=== PATIENT | male | born 1990 ===

== ENCOUNTER 2022-02-13 16:22 | Outpatient (REF) | payer OTHER, SELFPAY ==
--- NOTE | ~2022-02-13 | XR_ITS ---
EXAMINATION: XR TOES, RIGHT CLINICAL INFORMATION: First digit pain. COMPARISON: None TECHNIQUE: 3 views of the right toes were obtained. FINDINGS: Mild hallux valgus deformity. No acute fracture or dislocation. The joint spaces are unremarkable. The soft tissues are unremarkable. No radiopaque foreign body. XR/XR toe RT min 2V IMPRESSION: No acute abnormality or significant degenerative change. Mild hallux valgus.
== END 2022-02-13 16:23 | disposition home or self-care (01) ==
LOC: HO.HMGCX 16:22
PROVIDERS: PCP Internal Medicine; Visit Provider Emergency Medicine
DX: M79.674 Pain in right toe(s) (principal)
CPT/HCPCS: 73660

== ENCOUNTER 2022-09-04 09:52 | Outpatient (REF) | payer OTHER, SELFPAY ==
[2022-09-04 10:04] LABS: MANUAL DIFF FLAG NO
[2022-09-04 10:34] LABS: Basophils Percent Auto 0.4 % (0-2); Eosinophils Absolute Auto 0.1 X10*3/uL (0.0-0.4); Eosinophils Percent Auto 1.7 % (0-4); Hematocrit 46.1 % (42.0-52.0); Hemoglobin 15.4 g/dl (14.0-18.0); Imm Gran Abs Auto 0.01 X10*3/uL (0.00-0.03); Imm Gran Pct Auto 0.1 % (0.0-0.4); Lymphocytes Absolute Auto 3.4 X10*3/uL (1.2-4.9); Lymphocytes Percent Auto 43.4 % (20-40); Mean Corpuscular HGB Conc 33.4 g/dl (31.0-36.0); Mean Corpuscular Hemoglobin 29.7 pg (27.0-33.0); Mean Platelet Volume 10.3 fL (9.4-12.4); Monocytes Absolute Auto 0.5 X10*3/uL (0.1-1.2); Monocytes Percent Auto 6.9 % (2-11); Neutrophils Absolute Auto 3.7 x10*3/uL (2.0-8.3); Neutrophils Percent Auto 47.5 % (45-73); Platelet Count 275 X10*3/uL (160-400); Red Blood Count 5.18 X10*6/uL (4.60-5.80); Red Cell Distribution Width 12.1 % (11.0-16.0); White Blood Count 7.8 X10*3/uL (4.8-10.8)
[2022-09-04 11:08] LABS: Alanine Aminotransferase 26 U/L (0-40); Albumin Level 4.7 g/dL (3.5-5.0); Alkaline Phosphatase 53 U/L (39-117); Anion Gap 12 (12-20); Aspartate Amino Transferase 24 U/L (5-37); Bilirubin Total 0.8 mg/dL (0.0-1.0); Blood Urea Nitrogen 14 mg/dL (9-16); Calcium 9.9 mg/dL (8.4-10.2); Carbon Dioxide 28 mmol/L (22-29); Chloride 107 mmol/L (96-108); Cholesterol 176 mg/dL; Estimated Glomerular Filt Rate > 60; Glucose Random 72 mg/dL (60-115); Potassium 4.8 mmol/L (3.3-5.1); Sodium 142 mmol/L (135-145)
[2022-09-04 11:14] LABS: Appearance Urine Clear; Color Urine Yellow; Glucose Urine UA Negative (Negative); Leukocyte Esterase Urine Negative (Negative); Nitrite Urine Negative (Negative); Specific Gravity - Urine 1.015 (1.005-1.025); Urine Blood Negative (Negative); Urine Ketones Negative (Negative); Urine Protein Negative (Neg-Trace)
[2022-09-04 11:25] LABS: TSH reflex Free T4 0.97 uIU/mL (0.32-4.0); Vitamin D 25-OH Total 35.7 ng/mL (>30)
== END 2022-09-04 09:53 | disposition home or self-care (01) ==
LOC: HO.LAB 09:52
PROVIDERS: PCP Internal Medicine; Visit Provider Internal Medicine
DX: Z00.00 Encounter for general adult medical examination without abnormal findings (principal); E78.00 Pure hypercholesterolemia, unspecified; R30.0 Dysuria; E55.9 Vitamin D deficiency, unspecified
CPT/HCPCS: 36415; 80053; 81003; 82306; 82465; 84443; 85025

== ENCOUNTER 2023-01-06 09:18 | Outpatient (AMB) | payer OTHER, SELFPAY ==
[2023-01-06 09:26] VITALS: BP 110/78; PULSE 48; O2SAT 97; BMI 31.4
--- NOTE | 2023-01-06 09:26 | MHC.PC.OV ---
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 Required: No Accompanied by: Self / Same As Patient Allergies No Known Drug Allergies Allergy (Mild, Verified 01/06/23 09:59) Unknown Medication List - Last Reconciled 01/06/23 by Julio Beebe MD valacyclovir 1,000 mg PO BID Tobacco use date assessed: 01/06/23 Dental Screening Dental Screen Date: 01/06/23 Did you have a dental visit in the last 12 months?: Yes Did you have a dental problem in the last 6 months where you did not have access to dental care?: No Was dental information given to patient?: Patient has dentist HPI GERD/gastritis HPI Details Patient comes in today for his follow up visit States that he still has on and off headaches - last episode was about a month ago and describes it as a brief sharp pain on the right side of his head that lasted for about 5 seconds This was followed later on by a generalized throbbing type of headache that lasted for about 5 to 10 minutes States that he often has not taken anything for his headaches lately as by the time he decides to take something, the headaches are gone Relates (+) fatigue often; denies any dizziness Denies any chest pains, no SOB No nausea/vomiting but still has recurrent epigastric pains and states that the Omeprazole Rx he was started on previously did not help much No change in bowel habits noted Was seen by podiatry for his toe issues a couple of months ago and states that they wanted him to try some orthotics first REPLACED BY [facility] Medical History Herpes encephalitis Obesity (BMI 30-39.9) Surgical History Hx of reconstruction of anterior cruciate ligament tear Family History Father No problems noted. Mother No problems noted. Other Substance abuse Social History Housing: House Alcohol intake: current Alcohol intake frequency: holidays/special occasions only Patient Tobacco Use Status: Never used Tobacco e-Cigarette/Vaping Use: Never Used Second Hand Smoke Exposure: Yes service: No Current occupational status: student Cognitive needs: No Hearing needs: No Vision needs: Yes Questionnaire PHQ-9 Over the last 2 weeks, how often have you been bothered by any of the following problems? 1. Little interest or pleasure in doing things: not at all 2. Feeling down, depressed, or hopeless: not at all 3. Trouble falling or staying asleep, or sleeping too much: not at all 4. Feeling tired or having little energy: not at all 5. Poor appetite or overeating: not at all 6. Feeling bad about yourself - or that you are a failure or have let yourself or your family down: not at all 7. Trouble concentrating on things, such as reading the newspaper or watching television: not at all 8. Moving or speaking so slowly that other people could have noticed. Or the opposite - being so fidgety or restless that you have been moving around a lot more than usual: not at all 9. Thoughts that you would be better off or of hurting yourself in some way: not at all Total score: 0 Depression Screening Interpretation: Negative 39018 - PHQ-9 Billing: Yes Source: Developed by Drs. Naresh Durant, Maki Rivera, Edwin Banegas and colleagues, with an educational bart from [employer]. Thrive Questionnaire Date Thrive assessed: 01/06/23 I am a: Patient What is your living situation today?: I have a steady place to live Within the past 12 months, did the food you bought not last and you didn't have the money to get more?: Never true Within the past 12 months, did you worry whether your food would run out before you got money to buy more?: Never true Do you have trouble paying for medicines?: No Do you have trouble getting transportation to medical appointments?: No Do you have trouble paying your heating and electricity bill?: No Do you have trouble taking care of your child, family member or friend?: No Do you have trouble with day-to-day activities such as bathing, preparing meals, shopping, managing finances, etc.?: No Are you currently unemployed and looking for a job?: No Are you interested in more education?: No Please select the resources that you would like help with: None Currently or been in a relationship where the following occur: no concerns reported AUDIT C Alcohol Use Questionnaire (AUDIT-C) 1. How often do you have a drink containing alcohol?: Monthly or less 2. How many drinks containing alcohol do you have on a typical day when you are drinking?: 1 or 2 3. How often do you have six or more drinks on one occasion?: Never Total Score: 1 Score Reviewed/Action Taken: Yes DIAZ-7 AMB Questionnaire DIAZ-7 Date DIAZ - 7 assessed: 01/06/23 Feeling nervous, anxious, or on edge: 1 = Several days Not being able to stop or control worryin = Several days Worrying too much about different things: 1 = Several days Trouble relaxin = Several days Being so restless that it is hard to sit still: 1 = Several days Becoming easily annoyed or irritable: 1 = Several days Feeling afraid as if something awful might happen: 1 = Several days Total DIAZ-7 score (0-4 normal; 5-9 mild; 10-14 moderate; 15-21 severe): 7 Source: Developed by Drs. Naresh Durant, Maki Rivera, Edwin Banegas and colleagues, with an educational bart from [employer]. Review of Systems Const Denies chills, Denies fatigue, Denies fever(s) and Reports headache(s) (occasional sharp headaches - see HPI) Eyes Reports blurry vision (in both eyes - has myopia and astigmatism), Reports eye pain (occasional sharp pains in the eyes ) and Reports seeing flashes (when eye pain occurs) ENT Denies dysphagia, Denies dizziness, Denies otalgia, Reports headache(s) (occasional sharp headaches - see HPI), Denies neck pain, Denies odynophagia and Denies sore throat Card Denies chest pain, Denies rapid heart rate, Denies irregular heart rhythm, Denies palpitations and Denies dyspnea Resp Denies chest congestion, Denies cough, Denies dyspnea and Denies wheezing GI Reports abdominal pain (on and off, mostly epigastric - better with eating), Denies constipation, Denies dysphagia, Denies heartburn, Denies diarrhea, Denies nausea, Denies odynophagia and Denies vomiting Denies difficulty urinating, Denies dysuria and Denies urinary frequency Musc Reports arthralgias (frequent, mostly on and under base of right big toe), Denies joint swelling and Denies neck pain Skin/Breast Denies rash Neuro Denies dizziness, Reports headache(s) (occasional sharp headaches - see HPI) and Denies paresthesias Endo Denies fatigue and Denies palpitations Aller/Immun Denies wheezing Physical exam (Primary Care) Vital Signs: Last Vital Signs Pulse 48 L 01/06/23 09:26 BP 110/78 01/06/23 09:26 Pulse Ox 97 01/06/23 09:26 Oxygen Delivery Method Room Air 01/06/23 09:26 BMI result Body Mass Index 31.4 Tobacco/Smoking Status: Tobacco use Status Tobacco use date assessed 01/06/23 01/06/23 09:31 Patient Tobacco Use Status Never used Tobacco 01/06/23 09:31 e-Cigarette/Vaping Use Never Used 01/06/23 09:31 PHQ-9: PHQ-9 Score PHQ-9: Total score 0 01/06/23 10:01 Depression Screening Interpretation: Negative Thrive Assessment: Date of Thrive Assessment Date Thrive assessed 01/06/23 01/06/23 09:31 Currently or been in a relationship where the following occur: no concerns reported Const General: no acute distress and alert HENMT Ears: TM's normal bilaterally and EAC's normal Throat: Yes posterior oropharynx normal and Yes tonsils normal (no TP congestion) Neck Neck: Yes no lymphadenopathy and Yes supple Thyroid: Thyroid normal Resp Auscultation: clear to auscultation bilaterally, no rales and no wheezes Cardio Rate: regular rate Rhythm: regular rhythm Heart sounds: no murmurs GI Palpation (GI): Soft to palpation, nontender and no guarding Auscultation: normal bowel sounds General: Yes no CVA tenderness Back/Spine/Pelvis Back: no CVA tenderness Thoracic/Lumbar Spine: thoracic and lumbar spine normal to inspection Skin Rashes: no rashes Neuro General: no focal motor deficits Extrem General: Yes no clubbing, cyanosis or edema Right lower extremity: foot Details: tenderness Location: of the great toe Location: at the MTP joint (with (+) bony enlargement noted) and along the plantar aspect Results Reviewed Results Reviewed: Laboratory Tests 09/04/22 09/04/22 09/04/22 10:00 10:03 10:03 WBC 7.8 Hgb 15.4 Hct 46.1 Plt Count 275 Sodium 142 Potassium 4.8 Creatinine 1.11 Estimated GFR > 60 Random Glucose 72 Calcium 9.9 AST 24 ALT 26 Cholesterol 176 25-OH Vitamin D Total 35.7 TSH 0.97 Ur Specific Hugo 1.015 Urine Protein Negative Urine Glucose (UA) Negative Urine Blood Negative Assessment and Plan Assessment & Plan (1) Hx of herpes encephalitis: Code(s): Z86.19 - Personal history of other infectious and parasitic diseases Plan: Occurred in 2021 Patient still has Valtrex Rx that he takes as needed for breakouts of his symptoms (2) Ocular migraine: Code(s): G43.109 - Migraine with aura, not intractable, without status migrainosus Plan: Suspect that his on and off sharp eyes pains accompanied by flashes of light in the eyes and more recently, his sharp right-sided headaches may be due to to ocular migraine As he also has vision issues (myopia and astigmatism) and with his Hx of herpes encephalitis last year, he was referred to ophthalmology for further evaluation and management at his last visit Will also refer him now to neurology for further evaluation and management (3) Epigastric pain: Code(s): R10.13 - Epigastric pain Plan: Possible gastritis, based on his symptoms Reinforced dietary restrictions He was started previously on a trial of Omeprazole 20 mg QD but states that it did not help much and he self-discontinued the medication a couple of months ago Will now send him for an upper GI for further evaluation and discussed that depending on how his upper GI series come out, we may need to refer him to GI for further evaluation Results of his labs done back in August 2022 reviewed and discussed with patient - labs are mostly within normal limits (4) Hallux valgus (acquired), right foot: Code(s): M20.11 - Hallux valgus (acquired), right foot Plan: His foot x-rays done last January 2022 revealed (+) bunion of the right great toe He also reported suffering from turf toe due to his continuing participation in wrestling activities - advised that this is most likely a result of his recurrent toe injury He was previously referred to and seen podiatry a couple of months ago and was reportedly prescribed some orthotics first to try; will continue to follow up with podiatry regularly for this issue (5) Obesity (BMI 30-39.9): Code(s): E66.9 - Obesity, unspecified Plan: Reinforced diet/exercise as tolerated/lose weight Plan Follow up in 4 months Orders: Orders [place] upper GI series Today R10.13 - Epigastric pain Referrals Neurology Referral R51.9 - Headache, unspecified Coding Level of Care Code Est Pt Level 4 (61980) Diagnoses Hx of herpes encephalitis Z86.19 Ocular migraine G43.109 Epigastric pain R10.13 Hallux valgus (acquired), right foot M20.11 Obesity (BMI 30-39.9) E66.9
== END 2023-01-06 10:21 | disposition home or self-care (01) ==
PROVIDERS: Visit Provider Internal Medicine
DX: G43.109 Migraine with aura, not intractable, without status migrainosus (principal); Z86.19 Personal history of other infectious and parasitic diseases; E66.9 Obesity, unspecified; Z68.31 Body mass index [BMI] 31.0-31.9, adult; R10.13 Epigastric pain; M20.11 Hallux valgus (acquired), right foot
CPT/HCPCS: 99214

== ENCOUNTER 2023-01-29 16:26 | Outpatient (AMB) | payer OTHER, SELFPAY ==
--- NOTE | 2023-01-29 16:29 | MHC.OFFWIV ---
Intake Vital Signs 01/29/23 16:31 Weight 228 lb BP 120/78 Blood Pressure Location Rt brachial Position Sitting Pulse 80 Pulse Source Pulse Oximeter Pulse Oximetry (%) 97 Oxygen Delivery Method Room Air Intake Visit Reasons: ESt/right shoulder pain Intake Note: Patient here for right shoulder pain, he states he does not remember injuring it but he was doing wrestling last week of december and believes it could be from that. Patient Tobacco Use Status: Never used Tobacco Allergies No Known Drug Allergies Allergy (Mild, Verified 01/29/23 16:32) Unknown Do you need a note to return to daycare/school/sports/work: No HPI ESt/right shoulder pain HPI Details 32-year-old male presents to the office for a sick visit. Patient is complaining of a prominent swelling on his right shoulder. He noticed it a month ago. 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 His shoulders are asymmetrical with the swelling absent on the left side [facility] Medical History Herpes encephalitis Obesity (BMI 30-39.9) Surgical History Hx of reconstruction of anterior cruciate ligament tear Family History Father No problems noted. Mother No problems noted. Other Substance abuse Social History Housing: House Alcohol intake: current Alcohol intake frequency: holidays/special occasions only Patient Tobacco Use Status: Never used Tobacco e-Cigarette/Vaping Use: Never Used Second Hand Smoke Exposure: Yes service: No Current occupational status: student Cognitive needs: No Hearing needs: No Vision needs: Yes Physical Exam Vital Signs: Last Vital Signs Pulse 80 01/29/23 16:31 BP 120/78 01/29/23 16:31 Pulse Ox 97 01/29/23 16:31 Oxygen Delivery Method Room Air 01/29/23 16:31 Const General: cooperative and healthy appearing Nutritional Appearance: well nourished Orientation/consciousness: patient oriented x3 Limitations: no limitations HEENT Head: Yes normal to inspection Eyes General: appearance normal, both eyes and all related structures Neck Neck: Yes normal visual inspection Chest Chest palpation & inspection: normal palpation of entire chest wall Resp Effort & Inspection: normal respiratory effort Neuro General: patient oriented x3 Extrem Other: Right shoulder: There is a prominent bony area on the lateral end of the clavicle or behind it. Full range of motion at the right shoulder with no pain or discomfort. Similar prominence is missing over the left shoulder Assessment & Plan Assessment & Plan (1) Injury of right clavicle: Code(s): S49.91XA - Unspecified injury of right shoulder and upper arm, initial encounter Qualifiers: Encounter type: initial encounter Qualified Code(s): S49.91XA - Unspecified injury of right shoulder and upper arm, initial encounter Plan: X-ray images were reviewed by me. On the right side, there is a prominent spine of the scapula. No other abnormalities were seen. X-rays were reviewed in detail with the patient. He would like to get an MRI and further evaluation of the area done. I suggested he follow-up with primary care. I informed him that I will be sending a note to his PCP. Orders: Orders XR shoulder RT min 2V 01/29/23 S43.401A - Unspecified sprain of right shoulder joint, initial encounter Coding Level of Care Code Est Pt Level 4 (23832) Diagnoses Injury of right clavicle, initial encounter S49.91XA Encounter type: initial encounter
[2023-01-29 16:31] VITALS: BP 120/78; PULSE 80; O2SAT 97
== END 2023-01-29 16:56 | disposition home or self-care (01) ==
LOC: HO.HMGWI 16:26
PROVIDERS: PCP Internal Medicine
DX: S49.91XA Unspecified injury of right shoulder and upper arm, initial encounter (principal)
CPT/HCPCS: 99214

== ENCOUNTER 2023-01-29 16:40 | Outpatient (REF) | payer OTHER, SELFPAY ==
--- NOTE | ~2023-01-29 | XR_ITS ---
EXAMINATION: XR SHOULDER, RIGHT CLINICAL INFORMATION: Reason for Exam S43.401A - Unspecified sprain of right shoulder joint, initial encounter COMPARISON: None TECHNIQUE: Three views of the shoulder. FINDINGS: No acute fracture or dislocation. Joint spaces are maintained without significant degenerative change. Soft tissues are unremarkable. XR/XR shoulder RT min 2V IMPRESSION: * No acute osseous abnormality.
== END 2023-01-29 16:41 | disposition home or self-care (01) ==
LOC: HO.HMGCX 16:40
PROVIDERS: PCP Internal Medicine; Visit Provider Internal Medicine
DX: S43.401A Unspecified sprain of right shoulder joint, initial encounter (principal)
CPT/HCPCS: 73030

== ENCOUNTER 2023-03-31 11:13 | Outpatient (AMB) | payer OTHER, SELFPAY ==
[2023-03-31 11:14] VITALS: BP 124/72; PULSE 67; O2SAT 98; BMI 31.9
--- NOTE | 2023-03-31 11:14 | A.OFFPC_ITS ---
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 Patient Dr. Beebe presents today for follow-up from the walk-in clinic. Patient was seen for right shoulder swelling x1 month. Patient does not recall any injury to the shoulder however he reported that he was wrestling 1 month prior. X-ray was obtained negative for acute fracture dislocation, joint spaces were maintained without significant degenerative changes and soft tissues were unremarkable. 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 Patient reports popping and clicking and right shoulder and for added 10 sharp pain with abduction. Patient denies any numbness tingling down arm or in hand. Patient states it feels like his bone is rolling over something like ligament. Patient reports has been avoiding any bench presses or push up like motion as this exacerbates this pain.Patient had pain with active range of motion with abduction and internal rotation. Patient also reports was seen by neurologist for recurrent headaches and history of herpes encephalitis. Patient continues to report daily temporal headaches usually right-sided medication all bilateral. Patient states he does experience photophobia as well as has confetti like aura when he is going to get a headache. Patient requesting referral to a different neurologist for 2nd opinion. Patient reports he was started on topiramate by Dr. Sanz however he has not yet started it because he would like to see a different neurologist. Referral entered to [facility] neurology. [facility] Medical History Herpes encephalitis Obesity (BMI 30-39.9) Surgical History Hx of reconstruction of anterior cruciate ligament tear Family History Father No problems noted. Mother No problems noted. Other Substance abuse Social History Housing: House Alcohol intake: current Alcohol intake frequency: holidays/special occasions only Patient Tobacco Use Status: Never used Tobacco e-Cigarette/Vaping Use: Never Used Second Hand Smoke Exposure: Yes service: No Current occupational status: student Cognitive needs: No Hearing needs: No Vision needs: Yes Questionnaire Thrive Questionnaire Date Thrive assessed: 01/06/23 AUDIT C Alcohol Use Questionnaire (AUDIT-C) 1. How often do you have a drink containing alcohol?: Monthly or less 2. How many drinks containing alcohol do you have on a typical day when you are drinking?: 1 or 2 3. How often do you have six or more drinks on one occasion?: Never Total Score: 1 Score Reviewed/Action Taken: Yes DIAZ-7 AMB Questionnaire DIAZ-7 Date DIAZ - 7 assessed: 01/06/23 Source: Developed by Drs. Naresh Durant, Maki Rivera, Edwin Banegas and colleagues, with an educational bart from [employer]. Review of Systems Const Denies chills, Denies fatigue, Denies fever(s) and Denies poor appetite Eyes Denies no additional complaints ENT Reports Normal hearing present Card Denies chest pain, Denies syncope, Denies rapid heart rate and Denies dyspnea Resp Denies cough and Denies dyspnea GI Denies change in stool character, Denies constipation, Denies diarrhea, Denies nausea and Denies vomiting Denies dysuria, Denies urinary frequency and Denies urinary urgency Musc Reports arthralgias (right shoulder pain ) Neuro Reports Normal hearing present, Denies confusion and Denies syncope Psych Denies confusion Endo Denies fatigue Physical exam (Primary Care) Vital Signs: Last Vital Signs Pulse 67 03/31/23 11:14 BP 124/72 03/31/23 11:14 Pulse Ox 98 03/31/23 11:14 Oxygen Delivery Method Room Air 03/31/23 11:14 BMI result Body Mass Index 31.9 Tobacco/Smoking Status: Tobacco use Status Tobacco use date assessed 03/31/23 03/31/23 11:15 Patient Tobacco Use Status Never used Tobacco 03/31/23 11:15 e-Cigarette/Vaping Use Never Used 03/31/23 11:15 Thrive Assessment: Date of Thrive Assessment Date Thrive assessed 01/06/23 03/31/23 11:15 Const General: No confusion Orientation/consciousness: No confusion HENMT Head: Yes normocephalic and Yes atraumatic Eyes Conjunctivae: conjunctivae normal Chest Chest palpation & inspection: normal inspection of the chest Resp Effort & Inspection: normal respiratory effort Auscultation: clear to auscultation bilaterally, no crackles, no rhonchi and no wheezes Cardio Rate: regular rate Rhythm: regular rhythm Heart sounds: S1 normal heart sound present and S2 normal heart sound present GI Inspection: Yes normal to inspection Neuro General: No confusion Cranial nerves: Yes Normal hearing present Extrem General: No edema Right upper extremity: normal capillary refill and shoulder/upper arm (Mary prominence noted to right clavical ) Details: tenderness Location: of the A-C joint and abnormal ROM Details: pain with active ROM; no pain with passive ROM; no swelling Left upper extremity: normal to inspection, full ROM and normal capillary refill Assessment and Plan Assessment & Plan (1) Injury of right clavicle: Code(s): S49.91XA - Unspecified injury of right shoulder and upper arm, initial encounter Qualifiers: Encounter type: initial encounter Qualified Code(s): S49.91XA - Unspecified injury of right shoulder and upper arm, initial encounter Plan: Patient continues to have right shoulder for at 4/10 pain with abduction and internal rotation.Denies numbness and tingling for upper extremity. Referral entered to orthopedic and will order MRI for further evaluation for possible rotator cuff injury. Can take [id number] Tylenol or ibuprofen as needed for pain. (2) Recurrent headache: Code(s): R51.9 - Headache, unspecified Plan: Patient requesting new referral to Neurology for 2nd opinion, order placed for [facility] Neu[facility]. Plan Keep scheduled follow-up with PCP or sooner if needed. Orders: Orders MR shoulder RT wo con Today S49.91XA - Unspecified injury of right shoulder and upper arm, initial encounter Referrals Orthopedics Referral S49.91XA - Unspecified injury of right shoulder and upper arm, initial encounter Neurology Referral R51.9 - Headache, unspecified Coding Level of Care Code Est Pt Level 3 (99288) Diagnoses Injury of right clavicle, initial encounter S49.91XA Encounter type: initial encounter Recurrent headache R51.9
== END 2023-03-31 11:43 | disposition home or self-care (01) ==
PROVIDERS: PCP Internal Medicine; Visit Provider Nurse Practitioner Family
DX: S49.91XA Unspecified injury of right shoulder and upper arm, initial encounter (principal); R51.9 Headache, unspecified
CPT/HCPCS: 99213

== ENCOUNTER 2023-05-06 09:01 | Outpatient (AMB) | payer OTHER, SELFPAY ==
--- NOTE | 2023-05-06 09:08 | MHC.OFFVIS ---
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 Patient reports he was wrestling and felt a sharp pain. He states that his pain comes and goes. ROM is limited when doing certain movements. 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 The patient was referred to our office by his PCP whom he saw on 03/31/2023. He presented to his PCP after being seen in the walk in clinic on 01/29/2023 for right shoulder edema. In the Walk-in Clinic note he noted no known injury but felt the edema could have been caused from wrestling during the last week of 12/2022. During his encounter with his PCP it was reports he was unable to do any bench presses or push up like motion as this exacerbates this pain. He also reported reports popping and clicking and right shoulder. X-rays of the right shoulder were obtained and an MRI was ordered (which has not been obtained at this time). While in the office today he reports he was wrestling when he felt a sharp pain. He states the pain is intermittent and his ROM is limited when doing certain movements. 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 [facility] Medical History Herpes encephalitis Obesity (BMI 30-39.9) Surgical History Hx of reconstruction of anterior cruciate ligament tear Family History Father No problems noted. Mother No problems noted. Other Substance abuse Social History Housing: House Alcohol intake: current Alcohol intake frequency: holidays/special occasions only Patient Tobacco Use Status: Never used Tobacco e-Cigarette/Vaping Use: Never Used Second Hand Smoke Exposure: Yes service: No Current occupational status: student Cognitive needs: No Hearing needs: No Vision needs: Yes Review of Systems Const All systems reviewed & are unremarkable except as noted in HPI and below Physical Exam Vital Signs: BMI result Body Mass Index 31.9 Const General: cooperative and no acute distress Orientation/consciousness: patient oriented x3 Resp Effort & Inspection: normal respiratory effort and able to speak in complete sentences Cardio Peripheral pulses: Peripheral pulses 2+ throughout Skin General skin exam: no rashes or lesions noted Neuro General: patient oriented x3 Extrem Other: Right shoulder: Normal to inspection. No ecchymosis, erythema, or edema. Full shoulder ROM in all planes. Negative cross-body reach. Negative empty can. Negative drop arm. Mildly positive O?Gildardo?s. NVI. Assessment & Plan Assessment & Plan (1) Superior labrum gegvtwnz-cz-gkeetzdws (SLAP) tear of right shoulder: Code(s): S43.431A - Superior glenoid labrum lesion of right shoulder, initial encounter Plan Mr. Bolanos is a 32-year-old left hand dominant male who presents in the office today, as a new patient, for an evaluation of right shoulder pain. The patient was referred to our office by his PCP whom he saw on 03/31/2023. He presented to his PCP after being seen in the walk in clinic on 01/29/2023 for right shoulder edema. In the Walk-in Clinic note he noted no known injury but felt the edema could have been caused from wrestling during the last week of 12/2022. During his encounter with his PCP it was reports he was unable to do any bench presses or push up like motion as this exacerbates this pain. He also reported reports popping and clicking and right shoulder. X-rays of the right shoulder were obtained and an MRI was ordered (which has not been obtained at this time). While in the office today he reports he was wrestling when he felt a sharp pain. He states the pain is intermittent and his ROM is limited when doing certain movements. 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 I discussed the role of physical therapy with the patient while in the office today, however, due to the patient already being active lifting weights and wrestling we have agreed to defer at this time. The patient will be referred for an MRI arthrogram of the right shoulder to further evaluate the integrity of the labrum and surrounding structures. I would like to see him back after the MRI is obtained, or sooner if needed. X-rays of the right shoulder which were obtained while in the office today and were reviewed by me, Shelley Coppola PA-C, revealed no evidence of acute fracture or dislocation. X-rays of the right shoulder, obtained on 01/29/2023, revealed: No acute osseous abnormality. Orders: Orders XR shoulder RT min 2V Today M25.519 - Pain in unspecified shoulder FL arthrogram shoulder RT Today S43.431A - Superior glenoid labrum lesion of right shoulder, initial encounter Patient Instructions: Scribed for Shelley Coppola PA-C by Irais Lopes medical record assistant, on 05/06/2023 at 9:03 am, EST. Coding Level of Care Code New Pt Level 4 (96696) Diagnoses Superior labrum xtbpwpwg-sk-ejsdtndwu (SLAP) tear of right shoulder S43.431A
[2023-05-06 09:13] VITALS: BMI 31.9
== END 2023-05-06 09:27 | disposition home or self-care (01) ==
PROVIDERS: PCP Internal Medicine; Visit Provider Physician Assistant
DX: S43.431A Superior glenoid labrum lesion of right shoulder, initial encounter (principal)
CPT/HCPCS: 99204

== ENCOUNTER 2023-05-06 09:31 | Outpatient (REF) | payer OTHER, SELFPAY ==
--- NOTE | ~2023-05-06 | XR_ITS ---
EXAMINATION: XR SHOULDER, RIGHT CLINICAL INFORMATION: Pain in the shoulder. COMPARISON: Prior examinations January 2023 TECHNIQUE: AP external rotation, Grashey, scapular Y, and axillary views of the right shoulder. FINDINGS: The bones and soft tissues are normal. No fracture. Glenohumeral and acromioclavicular alignment is anatomic with normal joint space. No abnormal soft tissue calcifications. XR/XR shoulder RT min 2V IMPRESSION: Normal right shoulder.
== END 2023-05-06 09:32 | disposition home or self-care (01) ==
LOC: HO.HOSX 09:31
PROVIDERS: Visit Provider Physician Assistant
DX: S43.431A Superior glenoid labrum lesion of right shoulder, initial encounter (principal); X58.XXXA Exposure to other specified factors, initial encounter; Y93.9 Activity, unspecified; Y92.9 Unspecified place or not applicable; Y99.9 Unspecified external cause status
CPT/HCPCS: 73030; 99202

== ENCOUNTER 2023-05-26 09:24 | Outpatient (AMB) | payer OTHER, SELFPAY ==
[2023-05-26 09:25] VITALS: BP 124/80; PULSE 78; O2SAT 97; BMI 33.2
--- NOTE | 2023-05-26 09:25 | MHC.PC.OV ---
Vital Signs 05/26/23 09:25 Height 6 ft Weight 244 lb 8 oz BMI 33.2 BP 124/80 Blood Pressure Location Lt brachial Position Sitting Pulse 78 Pulse Source Pulse Oximeter Pulse Oximetry (%) 97 Oxygen Delivery Method Room Air Intake Visit Reasons: headaches, epigastric pain, ocular migraine Pre Billing Specialist Required: No Accompanied by: Self / Same As Patient Allergies No Known Drug Allergies Allergy (Mild, Verified 05/26/23 09:26) Unknown Tobacco use date assessed: 05/26/23 Dental Screening Dental Screen Date: 05/26/23 Did you have a dental visit in the last 12 months?: No Did you have a dental problem in the last 6 months where you did not have access to dental care?: No Was dental information given to patient?: No HPI headaches, epigastric pain, ocular migraine HPI Details Patient comes in today for follow up of his recurrent headaches, eye pain and abdominal pain States that he is still experiencing frequent headaches lately - has headaches daily for the past couple of weeks He was seen by neurology a couple of months ago and started on Topiramate 25 mg Q HS for headache prophylaxis but states that he took it for about a week and stopped it when he felt that it was not helping much [place] that neurology saw him for less than 10 minutes and started him on this without really checking anything else out and he is wondering if he is taking the appropriate Rx or not Still has recurrent eye pains, especially when he has increased headaches States that he looked up information on the internet regarding his headaches and is afraid that his symptoms may be due to some issues with his trigeminal nerve and is wondering if he needs to go for some other tests to check this out further He denies any dizziness Denies any chest pains, no SOB No nausea/vomiting, no abdominal pain - states that his previous GI symptoms have all mostly cleared up and have not bothered him lately No change in bowel habits noted Still has recurrent right shoulder pain and is now being seen by orthopedics for this He is scheduled for MRI of his right shoulder in a couple of weeks for further evaluation [facility] Medical History (Updated 05/26/23 @ 09:58 by Julio Beebe MD) Migraine Obesity (BMI 30-39.9) Herpes encephalitis Surgical History Hx of reconstruction of anterior cruciate ligament tear Family History Father No problems noted. Mother No problems noted. Other Substance abuse Social History Housing: House Alcohol intake: current Alcohol intake frequency: holidays/special occasions only Patient Tobacco Use Status: Never used Tobacco e-Cigarette/Vaping Use: Never Used Second Hand Smoke Exposure: Yes service: No Current occupational status: student Cognitive needs: No Hearing needs: No Vision needs: Yes Questionnaire PHQ-9 Over the last 2 weeks, how often have you been bothered by any of the following problems? 1. Little interest or pleasure in doing things: not at all 2. Feeling down, depressed, or hopeless: not at all 3. Trouble falling or staying asleep, or sleeping too much: not at all 4. Feeling tired or having little energy: not at all 5. Poor appetite or overeating: not at all 6. Feeling bad about yourself - or that you are a failure or have let yourself or your family down: not at all 7. Trouble concentrating on things, such as reading the newspaper or watching television: not at all 8. Moving or speaking so slowly that other people could have noticed. Or the opposite - being so fidgety or restless that you have been moving around a lot more than usual: not at all 9. Thoughts that you would be better off or of hurting yourself in some way: not at all Total score: 0 Depression Screening Interpretation: Negative Depression Screening Done: Yes 61575 - PHQ-9 Billing: Yes Source: Developed by Drs. Naresh Durant, Maki Rivera, Edwin Banegas and colleagues, with an educational bart from [employer]. Thrive Questionnaire Date Thrive assessed: 05/26/23 I am a: Patient What is your living situation today?: I have a steady place to live Within the past 12 months, did the food you bought not last and you didn't have the money to get more?: Never true Within the past 12 months, did you worry whether your food would run out before you got money to buy more?: Never true Do you have trouble paying for medicines?: No Do you have trouble getting transportation to medical appointments?: No Do you have trouble paying your heating and electricity bill?: No Do you have trouble taking care of your child, family member or friend?: No Do you have trouble with day-to-day activities such as bathing, preparing meals, shopping, managing finances, etc.?: No Are you currently unemployed and looking for a job?: No Are you interested in more education?: No Please select the resources that you would like help with: None Currently or been in a relationship where the following occur: no concerns reported AUDIT C Alcohol Use Questionnaire (AUDIT-C) 1. How often do you have a drink containing alcohol?: Monthly or less 2. How many drinks containing alcohol do you have on a typical day when you are drinking?: 1 or 2 3. How often do you have six or more drinks on one occasion?: Never Total Score: 1 Score Reviewed/Action Taken: Yes DIAZ-7 AMB Questionnaire DIAZ-7 Date DIAZ - 7 assessed: 05/26/23 Feeling nervous, anxious, or on edge: 0 = Not at all Not being able to stop or control worryin = Not at all Worrying too much about different things: 0 = Not at all Trouble relaxin = Not at all Being so restless that it is hard to sit still: 0 = Not at all Becoming easily annoyed or irritable: 0 = Not at all Feeling afraid as if something awful might happen: 0 = Not at all Total DIAZ-7 score (0-4 normal; 5-9 mild; 10-14 moderate; 15-21 severe): 0 Source: Developed by Drs. Naresh Durant, Maki Rivera, Edwin Banegas and colleagues, with an educational bart from [employer]. Review of Systems Const Denies fatigue, Denies fever(s) and Reports headache(s) (recurrent sharp headaches) Eyes Reports blurry vision (in both eyes - has myopia and astigmatism), Reports eye pain (occasional sharp pains in the eyes ), Reports seeing flashes (when eye pain occurs) and Reports photophobia (associated with headaches) ENT Denies dysphagia, Denies dizziness, Denies otalgia, Reports headache(s) (recurrent sharp headaches), Denies neck pain, Denies odynophagia and Denies sore throat Card Denies chest pain, Denies rapid heart rate, Denies irregular heart rhythm, Denies palpitations and Denies dyspnea Resp Denies chest congestion, Denies cough, Denies dyspnea and Denies wheezing GI Denies abdominal pain, Denies constipation, Denies dysphagia, Denies heartburn, Denies diarrhea, Denies nausea, Denies odynophagia and Denies vomiting Denies difficulty urinating, Denies dysuria and Denies urinary frequency Musc Reports arthralgias (over the right shoulder), Denies joint swelling and Denies neck pain Skin/Breast Denies rash Neuro Denies dizziness, Reports headache(s) (recurrent sharp headaches) and Denies paresthesias Endo Denies fatigue and Denies palpitations Aller/Immun Denies wheezing Physical exam (Primary Care) Vital Signs: Last Vital Signs Pulse 78 05/26/23 09:25 BP 124/80 05/26/23 09:25 Pulse Ox 97 05/26/23 09:25 Oxygen Delivery Method Room Air 05/26/23 09:25 BMI result Body Mass Index 33.2 Tobacco/Smoking Status: Tobacco use Status Tobacco use date assessed 05/26/23 05/26/23 09:31 Patient Tobacco Use Status Never used Tobacco 05/26/23 09:31 e-Cigarette/Vaping Use Never Used 05/26/23 09:31 PHQ-9: PHQ-9 Score PHQ-9: Total score 0 05/26/23 09:31 Depression Screening Interpretation: Negative Thrive Assessment: Date of Thrive Assessment Date Thrive assessed 05/26/23 05/26/23 09:31 Currently or been in a relationship where the following occur: no concerns reported Const General: no acute distress and alert HENMT Throat: Yes posterior oropharynx normal and Yes tonsils normal (no TP congestion) Eyes Direct Ophthalmoscopy: photophobia (associated with headaches) Neck Neck: Yes no lymphadenopathy and Yes supple Thyroid: Thyroid normal Resp Auscultation: clear to auscultation bilaterally, no rales and no wheezes Cardio Rate: regular rate Rhythm: regular rhythm Heart sounds: no murmurs GI Palpation (GI): Soft to palpation and nontender Auscultation: normal bowel sounds General: Yes no CVA tenderness Back/Spine/Pelvis Back: no CVA tenderness Thoracic/Lumbar Spine: thoracic and lumbar spine normal to inspection Skin Rashes: no rashes Neuro General: no focal motor deficits Extrem General: Yes no clubbing, cyanosis or edema Right upper extremity: shoulder/upper arm Details: tenderness Location: of the A-C joint; no swelling Assessment and Plan Assessment & Plan (1) Migraine: Code(s): G43.909 - Migraine, unspecified, not intractable, without status migrainosus Qualifiers: Migraine type: unspecified Status migrainosus presence: without status migrainosus Intractability: not intractable Qualified Code(s): G43.909 - Migraine, unspecified, not intractable, without status migrainosus Plan: Patient was seen by neurology a couple of months ago and started on Topiramate 25 mg Q HS for headache prophylaxis but states that he took it for about a week and stopped it when he felt that it was not helping much States that neurology saw him for probably less than 10 minutes and started him on this without really checking anything else and he is concerned as to whether he is taking the appropriate medication or not He also remains concerned about his (right) eye pains, especially when he has increased headaches, and is afraid that his symptoms may be due to some issues with his trigeminal nerve (based on his internet search), and is wondering if he needs any additional work ups done Have advised him that his eye symptoms are most likely related to his headaches (migraine) and that his symptoms are not consistent with trigeminal nerve pathology Have also reassured him that Topiramate is a common medication that we often use to help prevent headaches and that it should be taken daily for it to be effective Have advised him to start back on it and take it every night at bedtime and to follow up with neurology as scheduled next month (2) Hx of herpes encephalitis: Code(s): Z86.19 - Personal history of other infectious and parasitic diseases Plan: Occurred in 2021 Patient still has Valtrex Rx that he takes as needed for breakouts of his symptoms (3) Superior labrum ywusnwuv-pd-qeyzdmhgp (SLAP) tear of right shoulder: Code(s): S43.431A - Superior glenoid labrum lesion of right shoulder, initial encounter Plan: Patient was seen by orthopedics for this a few weeks ago and is now scheduled for MRI of the shoulder on 06/04/2023 for further evaluation Follow up with orthopedics as scheduled (4) Obesity (BMI 30-39.9): Code(s): E66.9 - Obesity, unspecified Plan: Reinforced diet/exercise as tolerated/lose weight Plan To return as scheduled in August 2023 for his annual physical examination Coding Level of Care Code Est Pt Level 4 (07842) Diagnoses Migraine without status migrainosus, not intractable, unspecified migraine type G43.909 Migraine type: unspecified Status migrainosus presence: without status migrainosus Intractability: not intractable Hx of herpes encephalitis Z86.19 Superior labrum zrukevku-jj-epsobmedf (SLAP) tear of right shoulder S43.431A Obesity (BMI 30-39.9) E66.9
== END 2023-05-26 09:53 | disposition home or self-care (01) ==
PROVIDERS: PCP Internal Medicine; Visit Provider Internal Medicine
DX: G43.909 Migraine, unspecified, not intractable, without status migrainosus (principal); E66.9 Obesity, unspecified; Z68.33 Body mass index [BMI] 33.0-33.9, adult; Z86.19 Personal history of other infectious and parasitic diseases; S43.431A Superior glenoid labrum lesion of right shoulder, initial encounter
CPT/HCPCS: 99214

== ENCOUNTER 2023-06-04 13:06 | Outpatient (REF) | payer OTHER, SELFPAY | END 2023-06-04 13:07 | disposition home or self-care (01) | LOC: HO.XRAY 13:06 | PROVIDERS: PCP Internal Medicine; Visit Provider Physician Assistant | DX: Z13.89 Encounter for screening for other disorder (principal) ==

== ENCOUNTER 2023-06-20 13:14 | Outpatient (REF) | payer OTHER, SELFPAY ==
--- NOTE | ~2023-06-20 | FL_ITS ---
RIGHT SHOULDER ARTHROGRAM INDICATIONS: Right shoulder pain. Intra-articular gadolinium injection is needed prior to MRI. PROCEDURE: Risks and benefits and possible complications were discussed with the patient and the consent form was signed. The patient was placed supine on the fluoroscopy table. The right shoulder was prepped and draped in normal sterile fashion. 1% buffered lidocaine was used for anesthesia. A 22-gauge spinal needle was used to access the shoulder joint. Intra-articular position of the needle within the shoulder joint was verified using 3 cc of Omnipaque 300. A total of 10 mL of gadolinium/saline (1:200) contrast mixture was then injected into the shoulder joint. The needle was then removed and a Band-Aid was applied to the injection site. The patient tolerated the procedure well and was sent for to MRI. There were no immediate complications. FL/FL arthrogram shoulder RT IMPRESSION: Successful fluoroscopic right shoulder intraarticular instillation of dilute gadolinium. The patient will have subsequent MRI. The procedure was performed by anitha Rodriguez PA-C, and directly supervised by Dr. Perdomo.
--- NOTE | ~2023-06-20 | MR_ITS ---
EXAMINATION: MR SHOULDER WITH CONTRAST, RIGHT CLINICAL INFORMATION: Right shoulder pain following an injury in December 2022. Decreased range of motion. Evaluate for a superior labral tear. COMPARISON: Right shoulder fluoroscopic arthrography done earlier the same day. Most recent right shoulder radiographs dated 05/06/2023. TECHNIQUE: MRI of the shoulder was performed following the intra-articular administration of a dilute gadolinium-containing solution (arthrogram) on a high-field scanner. FINDINGS: ROTATOR CUFF: Intact. No muscle atrophy or fatty infiltration. BICEPS: Intact. CORACOACROMIAL ARCH: The undersurface of the acromion is flat with no subacromial spur. Acromioclavicular subchondral sclerosis with small marginal osteophytes. Marrow and capsular edema and trace joint effusion. Findings could represent osteoarthritis versus sequela of an overuse injury (early acromioclavicular osteolysis). LABRUM/CAPSULE: Faint linear fluid signal within the undersurface of the inferior labrum (coronal image 14/26) which could indicate focal undersurface tearing. No paralabral cyst. Intact joint capsule. GLENOHUMERAL JOINT/MARROW: Intact articular cartilage. No marrow edema or evidence of acute osseous injury. MR/MR shoulder RT w con IMPRESSION: 1. Faint linear fluid signal within the undersurface of the inferior labrum which could indicate focal undersurface tearing. No paralabral cyst. 2. Mild acromioclavicular osteoarthritis with marrow and capsular edema as well as a trace joint effusion. Findings could represent osteoarthritis versus sequela of an overuse injury (early acromioclavicular osteolysis). 3. No rotator cuff tendon tear.
[2023-06-20] MEDS: gadobutroL 2 ML VIAL IVPUSH (15:26)
== END 2023-06-20 13:15 | disposition home or self-care (01) ==
LOC: HO.XRAY 13:14
PROVIDERS: PCP Internal Medicine; Visit Provider Physician Assistant
DX: S43.431A Superior glenoid labrum lesion of right shoulder, initial encounter (principal)
CPT/HCPCS: 23350; 73040; 73222; A9585

== ENCOUNTER → 2023-06-20 13:16 | Outpatient (BNV) | payer OTHER, SELFPAY | PROVIDERS: PCP Internal Medicine; Visit Provider Radiology Diagnostic Radiology | DX: M25.511 Pain in right shoulder (principal) | CPT/HCPCS: 23350; 73040 ==

== ENCOUNTER 2023-09-08 09:39 | Outpatient (AMB) | payer OTHER, SELFPAY ==
--- NOTE | 2023-09-08 09:43 | MHC.PC.OV ---
Vital Signs 09/08/23 09:44 Height 6 ft Weight 242 lb BMI 32.8 BP 130/78 Blood Pressure Location Lt brachial Position Sitting Pulse 99 Pulse Source Pulse Oximeter Pulse Oximetry (%) 97 Oxygen Delivery Method Room Air Intake Visit Reasons: Annual Exam Intake Note: Patient is here today for a physical. Wheel Setter Required: No Negative Turner: Not Required per policy Accompanied by: Self / Same As Patient Allergies No Known Drug Allergies Allergy (Mild, Verified 09/08/23 10:06) Unknown Medication List - Last Reconciled 09/08/23 by Julio Beebe MD amitriptyline 10 mg PO BEDTIME valacyclovir 1,000 mg PO BID Tobacco use date assessed: 09/08/23 Dental Screening Dental Screen Date: 05/26/23 HPI Annual Exam HPI Details Patient comes in today for his annual physical examination States that he feels okay He denies any headaches or dizziness - is currently on Amitriptyline and states that this is helping him a lot better than Topiramate did Denies any chest pains, no SOB No nausea/vomiting, no abdominal pain No change in bowel habits noted Denies any acute urinary symptoms PFSH Medical History Migraine Obesity (BMI 30-39.9) Herpes encephalitis Surgical History Hx of reconstruction of anterior cruciate ligament tear Family History Father No problems noted. Mother No problems noted. Other Substance abuse Social History Housing: House Alcohol intake: current Alcohol intake frequency: holidays/special occasions only Patient Tobacco Use Status: Never used Tobacco e-Cigarette/Vaping Use: Never Used Second Hand Smoke Exposure: Yes service: No Current occupational status: student Cognitive needs: No Hearing needs: No Vision needs: Yes Questionnaire PHQ-9 Over the last 2 weeks, how often have you been bothered by any of the following problems? 1. Little interest or pleasure in doing things: not at all 2. Feeling down, depressed, or hopeless: not at all 3. Trouble falling or staying asleep, or sleeping too much: not at all 4. Feeling tired or having little energy: not at all 5. Poor appetite or overeating: not at all 6. Feeling bad about yourself - or that you are a failure or have let yourself or your family down: not at all 7. Trouble concentrating on things, such as reading the newspaper or watching television: not at all 8. Moving or speaking so slowly that other people could have noticed. Or the opposite - being so fidgety or restless that you have been moving around a lot more than usual: not at all 9. Thoughts that you would be better off or of hurting yourself in some way: not at all Total score: 0 Depression Screening Interpretation: Negative Depression Screening Done: Yes 25120 - PHQ-9 Billing: Yes Source: Developed by Drs. Naresh Durant, Maki Rivera, Edwin Banegas and colleagues, with an educational bart from [employer]. Thrive Questionnaire Date Thrive assessed: 09/08/23 I am a: Patient What is your living situation today?: I have a steady place to live Within the past 12 months, did the food you bought not last and you didn't have the money to get more?: Never true Within the past 12 months, did you worry whether your food would run out before you got money to buy more?: Never true Do you have trouble paying for medicines?: No Do you have trouble getting transportation to medical appointments?: No Do you have trouble paying your heating and electricity bill?: No Do you have trouble taking care of your child, family member or friend?: No Do you have trouble with day-to-day activities such as bathing, preparing meals, shopping, managing finances, etc.?: No Are you currently unemployed and looking for a job?: No Are you interested in more education?: No Please select the resources that you would like help with: None Currently or been in a relationship where the following occur: no concerns reported THRIVE Score: 0 AUDIT C Alcohol Use Questionnaire (AUDIT-C) 1. How often do you have a drink containing alcohol?: Monthly or less 2. How many drinks containing alcohol do you have on a typical day when you are drinking?: 1 or 2 3. How often do you have six or more drinks on one occasion?: Never Total Score: 1 Score Reviewed/Action Taken: Yes DIAZ-7 AMB Questionnaire DIAZ-7 Date DIAZ - 7 assessed: 05/26/23 Source: Developed by Drs. Naresh Durant, Maki Rivera, Edwin Banegas and colleagues, with an educational bart from [employer]. Review of Systems Const Denies chills, Denies fatigue, Denies fever(s), Denies headache(s), Denies malaise and Denies weakness Eyes Denies blurry vision, Denies change in vision, Denies irritation and Denies itchy eyes ENT Denies dysphagia, Denies dizziness, Denies otalgia, Denies headache(s), Denies nasal congestion, Denies neck pain, Denies odynophagia and Denies sore throat Card Denies chest pain, Denies rapid heart rate, Denies irregular heart rhythm, Denies palpitations and Denies dyspnea Resp Denies chest congestion, Denies cough, Denies dyspnea and Denies wheezing GI Denies abdominal pain, Denies bloating, Denies constipation, Denies dysphagia, Denies heartburn, Denies diarrhea, Denies nausea, Denies odynophagia and Denies vomiting Denies hematuria, Denies difficulty urinating, Denies dysuria, Denies urinary frequency and Denies urinary urgency Musc Denies back pain, Denies arthralgias, Denies joint swelling, Denies muscle weakness and Denies neck pain Skin/Breast Denies change in pigmentation, Denies lesions, Denies rash and Denies unusual bruising Neuro Denies dizziness, Denies headache(s), Denies paresthesias and Denies weakness Endo Denies fatigue and Denies palpitations Aller/Immun Denies itchy eyes and Denies wheezing Physical exam (Primary Care) Vital Signs: Last Vital Signs Pulse 99 09/08/23 09:44 BP 130/78 09/08/23 09:44 Pulse Ox 97 09/08/23 09:44 Oxygen Delivery Method Room Air 09/08/23 09:44 BMI result Body Mass Index 32.8 Tobacco/Smoking Status: Tobacco use Status Tobacco use date assessed 09/08/23 09/08/23 09:48 Patient Tobacco Use Status Never used Tobacco 09/08/23 09:48 e-Cigarette/Vaping Use Never Used 09/08/23 09:48 Depression Screening Interpretation: Negative Thrive Assessment: Date of Thrive Assessment Date Thrive assessed 05/26/23 09/08/23 09:48 Currently or been in a relationship where the following occur: no concerns reported Const General: no acute distress, alert and awake Orientation/consciousness: patient oriented x3 HENMT Head: Yes normocephalic and Yes atraumatic Ears: external ears normal, TM's normal bilaterally and EAC's normal General nose exam: No nasal discharge present Face and sinus: Yes normal facial exam and Yes sinuses nontender Teeth and gingiva: dentition normal Throat: Yes posterior oropharynx normal and Yes tonsils normal (no TP congestion) Eyes Eyelids: Yes eyelids normal Conjunctivae: conjunctivae normal Pupils: Equal, round and reactive pupils present EOM: EOMs intact bilaterally Neck Neck: Yes no lymphadenopathy and Yes supple Thyroid: Thyroid normal Resp Auscultation: clear to auscultation bilaterally, no rales and no wheezes Cardio Rate: regular rate Rhythm: regular rhythm Heart sounds: no murmurs GI Palpation (GI): Soft to palpation, nontender and No hepatosplenomegaly present Auscultation: normal bowel sounds General: Yes no CVA tenderness Back/Spine/Pelvis Back: no CVA tenderness Thoracic/Lumbar Spine: thoracic and lumbar spine normal to inspection Skin Lesions: no lesions Rashes: no rashes Neuro General: patient oriented x3, moves all extremities, no focal motor deficits and CN's II-XI intact bilaterally Cranial nerves: Yes Equal, round and reactive pupils present Cognition (Neuro): normal cognition Gait exam (Neuro): Normal gait present Extrem General: Yes no clubbing, cyanosis or edema Assessment and Plan Assessment & Plan (1) Annual physical exam: Code(s): Z00.00 - Encounter for general adult medical examination without abnormal findings Plan: Check labs Have advised patient that we will check back with him if any of his labs come back with unexpected results (2) Migraine: Code(s): G43.909 - Migraine, unspecified, not intractable, without status migrainosus Qualifiers: Migraine type: unspecified Status migrainosus presence: without status migrainosus Intractability: not intractable Qualified Code(s): G43.909 - Migraine, unspecified, not intractable, without status migrainosus Plan: States that his headaches have been much better controlled since he was started on Amitriptyline by neurology (Dr. 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 Continue Amitriptyline 10 mg Q HS Follow up with neurology as scheduled (3) Hx of herpes encephalitis: Code(s): Z86.19 - Personal history of other infectious and parasitic diseases Plan: Occurred in 2021 Patient still has Valtrex Rx that he takes as needed for breakouts of his symptoms (4) Right shoulder pain: Code(s): M25.511 - Pain in right shoulder Qualifiers: Chronicity: unspecified Qualified Code(s): M25.511 - Pain in right shoulder Plan: States that this has mostly resolved with physical therapy and that his shoulder currently feels okay MRI of the shoulder done back in June 2023 that revealed (+) mild acromioclavicular osteoarthritis with marrow and capsular edema as well as a trace joint effusion - could represent osteoarthritis versus sequela of an overuse injury (early acromioclavicular osteolysis) Follow up with orthopedics as scheduled or as needed (5) Obesity (BMI 30-39.9): Code(s): E66.9 - Obesity, unspecified Plan: Reinforced diet/exercise as tolerated Advised that his BMI is misleading as he currently has a lot of muscle mass and muscle is heavier than fat and is likely skewing his BMI higher than it actually should be Plan Follow up in 6 months Orders: Orders Lipid Panel Today E78.00 - Pure hypercholesterolemia, unspecified, Z00.00 - Encounter for general adult medical examination without abnormal findings TSH reflex Free T4 Today E78.00 - Pure hypercholesterolemia, unspecified, Z00.00 - Encounter for general adult medical examination without abnormal findings Complete Blood Count Auto Diff Today D64.9 - Anemia, unspecified, Z00.00 - Encounter for general adult medical examination without abnormal findings Comprehensive [place]. Panel Fast Today E78.00 - Pure hypercholesterolemia, unspecified, Z00.00 - Encounter for general adult medical examination without abnormal findings UA CC w/rflx Micro + Cult Today R30.0 - Dysuria, Z00.00 - Encounter for general adult medical examination without abnormal findings Vitamin D 25-OH Total Today E55.9 - Vitamin D deficiency, unspecified, Z00.00 - Encounter for general adult medical examination without abnormal findings Coding Level of Care Code Est Pt Prev Care 18-39y([id number]) Diagnoses Annual physical exam Z00.00 Migraine without status migrainosus, not intractable, unspecified migraine type G43.909 Migraine type: unspecified Status migrainosus presence: without status migrainosus Intractability: not intractable Hx of herpes encephalitis Z86.19 Right shoulder pain, unspecified chronicity M25.511 Chronicity: unspecified Obesity (BMI 30-39.9) E66.9
[2023-09-08 09:44] VITALS: BP 130/78; PULSE 99; O2SAT 97; BMI 32.8
== END 2023-09-08 10:18 | disposition home or self-care (01) ==
LOC: HO.HMGH 09:41
PROVIDERS: PCP Internal Medicine; Visit Provider Internal Medicine
DX: Z00.00 Encounter for general adult medical examination without abnormal findings (principal); G43.909 Migraine, unspecified, not intractable, without status migrainosus; Z86.19 Personal history of other infectious and parasitic diseases; M25.511 Pain in right shoulder
CPT/HCPCS: 99395

== ENCOUNTER 2024-05-07 14:52 | Outpatient (AMB) | payer OTHER, SELFPAY ==
[2024-05-07 15:02] VITALS: BP 118/74; PULSE 69; O2SAT 97; BMI 35.3
--- NOTE | 2024-05-07 15:02 | A.OFFPC_ITS ---
Vital Signs 05/07/24 15:02 Height 6 ft Weight 260 lb BMI 35.3 BP 118/74 Blood Pressure Location Lt brachial Position Sitting Pulse 69 Pulse Source Pulse Oximeter Pulse Oximetry (%) 97 Oxygen Delivery Method Room Air Intake Visit Reasons: Migraine Project Management Director Required: No Accompanied by: Self / Same As Patient Allergies No Known Drug Allergies Allergy (Mild, Verified 05/07/24 15:32) Unknown Medication List - Last Reconciled 05/07/24 by Julio Beebe MD valacyclovir 1,000 mg PO BID Tobacco use date assessed: 05/07/24 Dental Screening Dental Screen Date: 05/07/24 Did you have a dental visit in the last 12 months?: No Did you have a dental problem in the last 6 months where you did not have access to dental care?: No Was dental information given to patient?: No HPI Migraine HPI Details Patient comes in today for his follow-up visit States that he has been experiencing recurrent migraine headaches again lately Notes also frequent pain over neck and shoulder areas bilaterally - states that he has had the neck and shoulder pain for a while now and he relates that these are likely due to his wrestling activities, which he continues to participate in States that he has also been experiencing occasional numbness and tingling sensation in both of his hands and feet He has been prescribed amitriptyline in the past for preventive treatment of his headaches but he admits that he has not been taking it for a while now States that his headaches have not gotten any worse and have not been occurring more frequently since he stopped taking his amitriptyline Relates (+) photophobia associated with his headaches but denies any aura Feels that his recent increased neck pain is likely what is triggering his recent headaches He denies any dizziness Denies any chest pains, no shortness of breath No nausea/vomiting, no abdominal pain No change in bowel habits noted [facility] Medical History (Updated 05/09/24 @ 08:07 by Julio Beebe MD) Osteoarthritis of right shoulder Migraine Obesity (BMI 30-39.9) Herpes encephalitis Surgical History Hx of reconstruction of anterior cruciate ligament tear Family History Father No problems noted. Mother No problems noted. Other Substance abuse Social History Housing: House Alcohol intake: current Alcohol intake frequency: holidays/special occasions only Patient Tobacco Use Status: Never used Tobacco e-Cigarette/Vaping Use: Never Used Second Hand Smoke Exposure: Yes service: No Current occupational status: student Cognitive needs: No Hearing needs: No Vision needs: Yes Questionnaire PHQ-9 Over the last 2 weeks, how often have you been bothered by any of the following problems? 1. Little interest or pleasure in doing things: not at all 2. Feeling down, depressed, or hopeless: not at all 3. Trouble falling or staying asleep, or sleeping too much: not at all 4. Feeling tired or having little energy: not at all 5. Poor appetite or overeating: not at all 6. Feeling bad about yourself - or that you are a failure or have let yourself or your family down: not at all 7. Trouble concentrating on things, such as reading the newspaper or watching television: not at all 8. Moving or speaking so slowly that other people could have noticed. Or the opposite - being so fidgety or restless that you have been moving around a lot more than usual: not at all 9. Thoughts that you would be better off or of hurting yourself in some way: not at all Total score: 0 Depression Screening Interpretation: Negative Depression Screening Done: Yes 67230 - PHQ-9 Billing: Yes Source: Developed by Drs. Naresh Durant, Maki Rivera, Edwin Banegas and colleagues, with an educational bart from [employer]. Thrive Questionnaire Date Thrive assessed: 05/07/24 I am a: Patient What is your living situation today?: I have a steady place to live Within the past 12 months, did the food you bought not last and you didn't have the money to get more?: Never true Within the past 12 months, did you worry whether your food would run out before you got money to buy more?: Never true Do you have trouble paying for medicines?: No Do you have trouble getting transportation to medical appointments?: No Do you have trouble paying your heating and electricity bill?: No Do you have trouble taking care of your child, family member or friend?: No Do you have trouble with day-to-day activities such as bathing, preparing meals, shopping, managing finances, etc.?: No Are you currently unemployed and looking for a job?: No Are you interested in more education?: No Please select the resources that you would like help with: None Currently or been in a relationship where the following occur: No concerns reported THRIVE Score: 0 AUDIT C Alcohol Use Questionnaire (AUDIT-C) 1. How often do you have a drink containing alcohol?: Monthly or less 2. How many drinks containing alcohol do you have on a typical day when you are drinking?: 1 or 2 3. How often do you have six or more drinks on one occasion?: Never Total Score: 1 Score Reviewed/Action Taken: Yes DIAZ-7 AMB Questionnaire DIZA-7 Date DIAZ - 7 assessed: 05/07/24 Feeling nervous, anxious, or on edge: 0 = Not at all Not being able to stop or control worryin = Not at all Worrying too much about different things: 0 = Not at all Trouble relaxin = Not at all Being so restless that it is hard to sit still: 0 = Not at all Becoming easily annoyed or irritable: 0 = Not at all Feeling afraid as if something awful might happen: 0 = Not at all Total DIAZ-7 score (0-4 normal; 5-9 mild; 10-14 moderate; 15-21 severe): 0 Source: Developed by Drs. Naresh Durant, Maki Rivera, Edwin Banegas and colleagues, with an educational bart from [employer]. Review of Systems Const Denies chills, Denies fatigue, Denies fever(s) and Reports headache(s) (on and off) Eyes Reports photophobia (associated with his headaches) ENT Denies dysphagia, Denies dizziness, Denies otalgia, Reports headache(s) (on and off), Reports neck pain (increased lately), Denies odynophagia and Denies sore throat Card Denies chest pain, Denies irregular heart rhythm, Denies palpitations and Denies dyspnea Resp Denies chest congestion, Denies cough and Denies dyspnea GI Denies abdominal pain, Denies constipation, Denies dysphagia, Denies heartburn, Denies diarrhea, Denies nausea, Denies odynophagia and Denies vomiting Denies hematuria, Denies difficulty urinating, Denies dysuria, Denies urinary frequency and Denies urinary urgency Musc Denies back pain, Denies arthralgias, Reports neck pain (increased lately), Reports numbness (on and off in both hands and feet) and Reports tingling (on and off in both hands and feet) Skin/Breast Denies unusual bruising Neuro Denies dizziness, Reports headache(s) (on and off), Reports numbness (on and off in both hands and feet) and Reports tingling (on and off in both hands and feet) Endo Denies fatigue and Denies palpitations Physical exam (Primary Care) Vital Signs: Last Vital Signs Pulse 69 05/07/24 15:02 BP 118/74 05/07/24 15:02 Pulse Ox 97 05/07/24 15:02 Oxygen Delivery Method Room Air 05/07/24 15:02 BMI result Body Mass Index 35.3 Tobacco/Smoking Status: Tobacco use Status Tobacco use date assessed 05/07/24 05/07/24 15:04 Patient Tobacco Use Status Never used Tobacco 05/07/24 15:04 e-Cigarette/Vaping Use Never Used 05/07/24 15:04 PHQ-9: PHQ-9 Score PHQ-9: Total score 0 05/07/24 15:36 Depression Screening Interpretation: Negative Thrive Assessment: Date of Thrive Assessment Date Thrive assessed 05/07/24 05/07/24 15:04 Currently or been in a relationship where the following occur: No concerns reported Const General: no acute distress and alert HENMT Ears: TM's normal bilaterally and EAC's normal Throat: Yes posterior oropharynx normal and Yes tonsils normal (no TP con gestion) Eyes Direct Ophthalmoscopy: photophobia (associated with his headaches) Neck Neck: No lymphadenopathy and Yes tender Thyroid: Thyroid normal Resp Auscultation: clear to auscultation bilaterally, no rales and no wheezes Cardio Rate: regular rate Rhythm: regular rhythm Heart sounds: no murmurs GI Palpation (GI): Soft to palpation and nontender Auscultation: normal bowel sounds General: Yes no CVA tenderness Back/Spine/Pelvis Back: no CVA tenderness Cervical Spine: cervical muscular tenderness (bilaterally) and Cervical spine tenderness Skin Rashes: no rashes Neuro General: moves all extremities, no focal motor deficits and CN's II-XI intact bilaterally Extrem General: Yes no clubbing, cyanosis or edema Coding Level of Care Code Est Pt Level 4 (94403) Diagnoses Neck pain M54.2 Migraine without status migrainosus, not intractable, unspecified migraine type G43.909 Migraine type: unspecified Status migrainosus presence: without status migrainosus Intractability: not intractable Hx of herpes encephalitis Z86.19 Osteoarthritis of right shoulder, unspecified osteoarthritis type M19.011 Osteoarthritis type: unspecified Obesity (BMI 30-39.9) E66.9 Additional Codes PHQ-9 - 89938 - PHQ-9 Billing: Yes ([id number]) Assessment & Plan Assessment & Plan (1) Neck pain: Code(s): M54.2 - Cervicalgia Category: Medical Plan: Will send patient for x-rays of the cervical spine ZEE for further evaluation Discuss that based on the description of his symptoms, he likely has some degenerative changes of his cervical spine and if he continues to experience symptoms of paresthesias in both hands and feet, may need an MRI for further evaluation later on (2) Migraine: Code(s): G43.909 - Migraine, unspecified, not intractable, without status migrainosus Category: Medical Qualifiers: Migraine type: unspecified Status migrainosus presence: without status migrainosus Intractability: not intractable Qualified Code(s): G43.909 - Migraine, unspecified, not intractable, without status migrainosus Plan: Patient was started on Amitriptyline by neurology (Dr. Velazquez) earlier this year for prophylactic treatment of his migraine headaches but he admits that he stopped taking the medication a few months ago and has not noticed any significant increase in his headaches since until recently He did not respond to Topamax that was tried last year There is a possibility that his recent increased neck pain is what is triggering his current headaches and we will look into his neck pain issues at this time Follow up with neurology as scheduled (3) Hx of herpes encephalitis: Comment: occurred in 2021 Code(s): Z86.19 - Personal history of other infectious and parasitic diseases Category: Medical Plan: Occurred in 2021 Patient still has Valtrex Rx that he takes as needed for breakouts of his symptoms but states that he has not needed to take it in a while now (4) Osteoarthritis of right shoulder: Code(s): M19.011 - Primary osteoarthritis, right shoulder Category: Medical Qualifiers: Osteoarthritis type: unspecified Qualified Code(s): M19.011 - Primary osteoarthritis, right shoulder Plan: MRI of the shoulder done back in June 2023 that revealed (+) mild acromioclavicular osteoarthritis with marrow and capsular edema as well as a trace joint effusion - could represent osteoarthritis versus sequela of an overuse injury (early acromioclavicular osteolysis) Follow-up with orthopedics as scheduled (5) Obesity (BMI 30-39.9): Code(s): E66.9 - Obesity, unspecified Category: Medical Plan: Reinforced diet/exercise as tolerated/lose weight Plan To return in 6 months for his next physical examination Orders: Orders XR cervical spine 3V 05/07/24 M54.2 - Cervicalgia Complete Blood Count Auto Diff 6 Months D64.9 - Anemia, unspecified, Z00.00 - Encounter for general adult medical examination without abnormal findings TSH reflex Free T4 6 Months E78.00 - Pure hypercholesterolemia, unspecified, Z00.00 - Encounter for general adult medical examination without abnormal findings UA CC w/rflx Micro + Cult 6 Months R30.0 - Dysuria, Z00.00 - Encounter for general adult medical examination without abnormal findings Vitamin D 25-OH Total 6 Months E55.9 - Vitamin D deficiency, unspecified, Z00.00 - Encounter for general adult medical examination without abnormal findings Comprehensive Met. Panel 6 Months Z00.00 - Encounter for general adult medical examination without abnormal findings Cholesterol 6 Months Z00.00 - Encounter for general adult medical examination without abnormal findings
== END 2024-05-07 15:39 | disposition home or self-care (01) ==
PROVIDERS: PCP Internal Medicine; Visit Provider Internal Medicine
DX: M54.2 Cervicalgia (principal); G43.909 Migraine, unspecified, not intractable, without status migrainosus; E66.9 Obesity, unspecified; Z68.35 Body mass index [BMI] 35.0-35.9, adult; Z86.19 Personal history of other infectious and parasitic diseases; M19.011 Primary osteoarthritis, right shoulder

== ENCOUNTER → 2024-05-07 14:52 | Outpatient (BNVA) | payer OTHER, SELFPAY | PROVIDERS: PCP Internal Medicine; Visit Provider Internal Medicine | DX: G43.909 Migraine, unspecified, not intractable, without status migrainosus (principal); M54.2 Cervicalgia; M19.011 Primary osteoarthritis, right shoulder; E66.9 Obesity, unspecified; D64.9 Anemia, unspecified; Z86.19 Personal history of other infectious and parasitic diseases; Z68.35 Body mass index [BMI] 35.0-35.9, adult | CPT/HCPCS: 96127; 99212 ==

== ENCOUNTER 2025-01-05 13:48 | Outpatient (AMB) | payer OTHER, SELFPAY ==
[2025-01-05 13:53] VITALS: BP 136/82; PULSE 90; RESP 16; TEMP 36.3; O2SAT 97; BMI 36.1
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
--- OUTSIDE RECORDS SUMMARY | 2025-01-05 14:44 | XMS_ITS | Clinical Summary ---
Author Organization [facility] Address [address] [place] [address] Care Team Providers Care Director Of Religious Activities Name Role Phone Renae Davenport Primary Care Provider [phone] Allergies No known active allergies Medications No known medications Active Problems No known active problems Social History Tobacco Use Types Packs/Day Years Used Date Smoking Tobacco: Every Day Alcohol Use Standard Drinks/Week Comments Not Asked 0 (1 standard drink = 0.6 oz pur e alcohol) Sex and Gender Information Value Date Recorded Sex Assigned at Not on file Legal Sex Male 3:14 PM EDT Gender Identity Not on file Sexual Orientation Not on file Last Filed Vital Signs Vital Sign Reading Time Taken Comments Blood Pressure 137/87 02/16/2013 3:38 PM EDT Pulse 77 02/16/2013 3:38 PM EDT Temperature 35.9 C (96.7 F) 02/16/2013 3:38 PM EDT Respiratory Rate - - Oxygen Saturation - - Inhaled Oxygen Concentration - - Weight 99.8 kg (220 lb) 02/16/2013 3:38 PM EDT Height 182.9 cm (6') 02/16/2013 3:38 PM EDT Body Mass Index 29.84 02/16/2013 3:38 PM EDT Plan of Treatment Health Maintenance Due Date Last Done Comments Hepatitis C Screening 1992 DTaP/Tdap/Td (1 - Tdap) 2010 Hep B (1 of 3 - 19+ 3-dose series) 12/25/2011 COVID-19 Vaccine ( - 2023-2 5 season) 2024 Influenza (#1) 2025 Zoster (Shingrix) (1 of 2) 2042 HPV Vaccine (No Doses Required) Completed Hep A Aged Out No longer eligi ble based on patient's age to complete this topic Hib Aged Out No longer eligi ble based on patient's age to complete this topic Meningococcal ACWY Aged Out No longer eligible based on patient's age to complete this topic Pneumococcal Aged Out No longer eligi ble based on patient's age to complete this topic Insurance BCBS FEE FOR SERVICE PPO Care Teams Director Of Religious Activities Relationship Specialty Start Date End Date Renae Davenport [address] [address] PCP - General Family Medicine 02/16/13
--- OUTSIDE RECORDS SUMMARY | 2025-01-05 14:44 | XMS_ITS | Clinical Summary ---
Author Organization [facility] Address [address] [place] [address] Phone Care Team Providers Care Predictive Maintenance Technician Name Role Phone Renae Davenport MD Primary Care Provider [phone] Allergies No known active allergies Surgical History Surgery Date Site/Laterality Comments ANTERIOR CRUCIATE LIGAMENT REPAIR Social History Tobacco Use Types Packs/Day Years Used Date Smoking Tobacco: Never Smokeless Tobacco: Never Tobacco Cessation:Counseling Given: Not Answered Alcohol Use Standard Drinks/Week Comments Not Currently 0 (1 standard drink = 0.6 oz pur e alcohol) Sex and Gender Information Value Date Recorded Sex Assigned at Not on file Legal Sex Male 4:01 AM EST Gender Identity Not on file Sexual Orientation Not on file Obstetrics History Last Filed Vital Signs Vital Sign Reading Time Taken Comments Blood Pressure 121/78 07/19/2023 6:56 PM EST Pulse 75 07/19/2023 6:56 PM EST Temperature 37 C (98.6 F) 07/19/2023 6:56 PM EST Respiratory Rate 16 07/19/2023 3:56 PM EST Oxygen Saturation 96% 07/19/2023 6:56 PM EST Inhaled Oxygen Concentration - - Weight 106 kg (233 lb) 07/19/2023 3:56 PM EST Height 182.9 cm (6') 07/19/2023 3:56 PM EST Body Mass Index 31.6 07/19/2023 3:56 PM EST Plan of Treatment Health Maintenance Due Date Last Done Comments DTaP,Tdap,and Td Vaccines (1 - Tdap) 12/25/2011 Hepatitis B Vaccines (1 of 3 - 19+ 3-dose series) 12/25/2011 HIV Screening 04/21/2022 Hepatitis C Screening 04/21/2022 Social Influencers of Health Screening 04/21/2022 COVID-19 Vaccine (1 - 2023-2 5 season) 2024 Depression Screening 05/19/2024 Influenza Vaccine (#1) 2025 HIB Vaccines Aged Out No longer eligi ble based on patient's age to complete this topic HPV Vaccines Aged Out No longer eligi ble based on patient's age to complete this topic Hepatitis A Vaccines Aged Out No long er eligible based on patient's age to complete this topic IPV Vaccines Aged Out No longer eligi ble based on patient's age to complete this topic MMR Vaccines Aged Out No longer eligi ble based on patient's age to complete this topic Meningococcal ACWY Vaccine Aged Out N o longer eligible based on patient's age to complete this topic Meningococcal B Vaccine Aged Out No l onger eligible based on patient's age to complete this topic Pneumococcal Vaccine: Pediat rics (0 to 5 Years) and At-Risk Patients (6 to 49 Years) Aged Out No longer eligible b ased on patient's age to complete this topic RSV Immunization Patients Un perfecto 20 months Aged Out No longer eligible b ased on patient's age to complete this topic Varicella Vaccines Aged Out No longer eligible based on patient's age to complete this topic Insurance [facility] [employer] [facility] Care Teams Predictive Maintenance Technician Relationship Specialty Start Date End Date Renae Davenport MD PCP - General 02/16/14
== END 2025-01-05 14:28 | disposition home or self-care (01) ==
LOC: HO.HMCH 13:49
PROVIDERS: PCP Internal Medicine; Visit Provider Internal Medicine
DX: Z00.00 Encounter for general adult medical examination without abnormal findings (principal); R51.9 Headache, unspecified; E66.9 Obesity, unspecified; Z68.36 Body mass index [BMI] 36.0-36.9, adult; R20.2 Paresthesia of skin; Z86.19 Personal history of other infectious and parasitic diseases; M19.011 Primary osteoarthritis, right shoulder

== ENCOUNTER 2025-01-05 13:48 | Outpatient (REF) | payer OTHER, SELFPAY ==
[2025-01-05 15:09] LABS: MANUAL DIFF FLAG NO
[2025-01-05 15:21] LABS: Hematocrit 41.7 % (42.0-52.0); Hemoglobin 14.4 g/dl (14.0-18.0); Imm Gran Abs Auto 0.02 X10*3/uL (0.00-0.03); Imm Gran Pct Auto 0.3 % (0.0-0.4); Lymphocytes Absolute Auto 3.1 X10*3/uL (1.2-4.9); Mean Corpuscular HGB Conc 34.5 g/dl (31.0-36.0); Mean Corpuscular Hemoglobin 29.7 pg (27.0-33.0); Mean Corpuscular Volume 86.0 fL (80.0-98.0); NRBC Abs Auto 0.000 X10*3/uL (0.0-0.012); NRBC Pct Auto 0.0 /100WBC (0.0-0.2); Platelet Count 270 X10*3/uL (160-400); Red Blood Count 4.85 X10*6/uL (4.60-5.80); White Blood Count 7.7 X10*3/uL (4.8-10.8)
[2025-01-05 15:35] LABS: Appearance Urine Clear; Glucose Urine UA Negative (Negative); PH 5.5 (5.0-9.0); Specific Gravity - Urine 1.025 (1.005-1.025)
[2025-01-05 16:11] LABS: Alanine Aminotransferase 32 U/L (0-40); Albumin Level 4.5 g/dL (3.5-5.0); Alkaline Phosphatase 64 U/L (39-117); Anion Gap 11 (12-20); Aspartate Amino Transferase 29 U/L (5-37); Blood Urea Nitrogen 20 mg/dL (9-16); Calcium 8.7 mg/dL (8.4-10.2); Carbon Dioxide 25 mmol/L (22-29); Chloride 107 mmol/L (96-108); Cholesterol 168 mg/dL (<200); Estimated Glomerular Filt Rate > 60; Magnesium 2.1 mg/dL (1.6-2.6); Potassium 3.7 mmol/L (3.3-5.1); Sodium 139 mmol/L (135-145); Total Protein 6.8 g/dL (6.5-8.0)
[2025-01-05 16:37] LABS: Folate 9.5 ng/mL (> or = 4.0)
[2025-01-05 16:48] LABS: Vitamin B12 479 pg/mL (200-900)
== END 2025-01-05 13:49 | disposition home or self-care (01) ==
LOC: HO.LAB 13:48
PROVIDERS: PCP Internal Medicine; Visit Provider Internal Medicine
DX: D64.9 Anemia, unspecified (principal); Z00.00 Encounter for general adult medical examination without abnormal findings; E55.9 Vitamin D deficiency, unspecified; R20.2 Paresthesia of skin; E78.00 Pure hypercholesterolemia, unspecified; R30.0 Dysuria; Z79.899 Other long term (current) drug therapy; R51.9 Headache, unspecified; M19.011 Primary osteoarthritis, right shoulder; E66.9 Obesity, unspecified; Z86.19 Personal history of other infectious and parasitic diseases; Z68.36 Body mass index [BMI] 36.0-36.9, adult
CPT/HCPCS: 36415; 80053; 81003; 82306; 82465; 82607; 82746; 83735; 84443; 85025; 96127; 99395

== ENCOUNTER 2025-02-24 16:05 | Outpatient (REF) | payer OTHER, SELFPAY ==
--- NOTE | ~2025-02-24 | XR_ITS ---
EXAM: X-ray cervical spine TECHNIQUE: Three-view C-spine x-ray INDICATION: Cervicalgia PRIOR: None FINDINGS: There is straightening of the cervical lordosis. There is no prevertebral soft tissue swelling. C3-4: mild disc space narrowing with endplate osteophytes. C4-5 demonstrates mild disc space narrowing and small endplate osteophytes. C5-6 demonstrates mild to moderate disc space narrowing with endplate osteophytes. C6-7 demonstrates moderate disc space narrowing and vacuum phenomena with endplate osteophytes. XR/XR cervical spine 3V IMPRESSION: There is straightening of the expected cervical lordosis. This can be idiopathic, but can also be related to degenerative change, muscle spasm, or posterior soft tissue injury. Multilevel degenerative changes are most advanced C6-7. Electronically signed by: Nabil Lopes MD 02/24/2025 04:26 PM EDT
--- NOTE | ~2025-02-24 | CT_ITS ---
EXAMINATION: CT HEAD WITHOUT CONTRAST CLINICAL INFORMATION: R51.9 - Headache, unspecified COMPARISON: None available. TECHNIQUE: Contiguous axial imaging was performed from the skull base to vertex without intravenous administration of contrast. This CT examination was performed using dose optimization techniques as appropriate, variously including the following: *Automated exposure control *Adjustment of mA and/or kV according to patient size (this includes techniques or standardized protocols for targeted exams where dose is matched to indication/reason for exam; i.e. extremities or head) *Use of iterative reconstruction technique FINDINGS: There is no acute ischemic change. There is no intracranial hemorrhage. There is no mass-effect or midline shift. Basal cisterns and ventricles are within normal limits for age/cerebral volume. Orbits are symmetrical and unremarkable. Paranasal sinuses and mastoid air cells are pneumatized. There are no bony abnormalities. CT/CT head/brain wo IV con IMPRESSION: No acute intracranial abnormality. Electronically signed by: Nabil Lopes MD 02/24/2025 05:21 PM EDT
== END 2025-02-24 16:06 | disposition home or self-care (01) ==
LOC: HO.CT 16:05
PROVIDERS: PCP Internal Medicine; Visit Provider Internal Medicine
DX: R51.9 Headache, unspecified (principal); M54.2 Cervicalgia
CPT/HCPCS: 70450; 72040

== ENCOUNTER → 2025-02-24 16:07 | Outpatient (BNV) | payer OTHER, SELFPAY | PROVIDERS: PCP Internal Medicine; Visit Provider Radiology Diagnostic Radiology | DX: R51.9 Headache, unspecified (principal); M50.323 Other cervical disc degeneration at C6-C7 level | CPT/HCPCS: 70450; 72040 ==

== ENCOUNTER 2025-04-18 14:34 | Outpatient (AMB) | payer OTHER, SELFPAY ==
[2025-04-18 14:36] VITALS: BP 126/80; PULSE 89; O2SAT 97; BMI 37.3
--- NOTE | 2025-04-18 14:36 | MHC.PC.OV ---
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: No Accompanied by: Self / Same As Patient Allergies No Known Drug Allergies Allergy (Mild, Verified 04/25/25 03:13) Unknown Medication List - Last Reconciled 04/25/25 by Julio Beebe MD sumatriptan succinate take 1 tab at onset of headache; if no relief may repeat 1 tab after at least 2 hrs; max = 4 tabs/24 hr orally PRN; topiramate 50 mg (2 x 25 mg) PO BEDTIME 30 days valacyclovir 1,000 mg PO BID Tobacco use date assessed: 04/18/25 Dental Screening Dental Screen Date: 04/18/25 Did you have a dental visit in the last 12 months?: No Did you have a dental problem in the last 6 months where you did not have access to dental care?: No Was dental information given to patient?: Patient has dentist HPI frequent headaches, paresthesias HPI Details - The patient is a 34 year old individual presenting for evaluation of persistent headaches. - The patient reports experiencing headaches daily, typically occurring from midday to afternoon and lasting for a couple of hours or a full afternoon. - Headache intensity varies, with some days requiring medication, and the patient has one sumatriptan pill remaining from a previous prescription. - Identified triggers include bright office lights and being overtired during flights. - The patient recalls waking from a severe headache once a couple of months ago but denies this occurring regularly. - A previous trial of low-dose Topamax for headache prevention was not effective. - A recent CAT scan performed last month was normal, and a recent eye exam was also normal. 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 - The patient denies alcohol consumption. He would also like to know how he did on his labs done back in December 2024 after his visit back then [facility] Medical History Osteoarthritis of right shoulder Migraine Obesity (BMI 30-39.9) Herpes encephalitis Surgical History Hx of reconstruction of anterior cruciate ligament tear Family History Father No problems noted. Mother No problems noted. Other Substance abuse Social History Housing: House Alcohol intake: current Alcohol intake frequency: holidays/special occasions only Patient Tobacco Use Status: Never used Tobacco e-Cigarette/Vaping Use: Never Used Second Hand Smoke Exposure: Yes service: No Current occupational status: student Cognitive needs: No Hearing needs: No Vision needs: Yes Questionnaire PHQ-9 Over the last 2 weeks, how often have you been bothered by any of the following problems? 1. Little interest or pleasure in doing things: not at all 2. Feeling down, depressed, or hopeless: not at all 3. Trouble falling or staying asleep, or sleeping too much: several days 4. Feeling tired or having little energy: several days 5. Poor appetite or overeating: several days 6. Feeling bad about yourself - or that you are a failure or have let yourself or your family down: not at all 7. Trouble concentrating on things, such as reading the newspaper or watching television: several days 8. Moving or speaking so slowly that other people could have noticed. Or the opposite - being so fidgety or restless that you have been moving around a lot more than usual: not at all 9. Thoughts that you would be better off or of hurting yourself in some way: not at all Total score: 4 Depression Screening Interpretation: Positive Depression Screening Follow-up: Follow-up Visit Requested Depression Screening Done: Yes 57702 - PHQ-9 Billing: Yes Source: Developed by Drs. Naresh Durant, Maki Rivera, Edwin Banegas and colleagues, with an educational bart from [employer]. Thrive Questionnaire Date Thrive assessed: 04/18/25 I am a: Patient What is your living situation today?: I have a steady place to live Within the past 12 months, did the food you bought not last and you didn't have the money to get more?: Sometimes True Within the past 12 months, did you worry whether your food would run out before you got money to buy more?: Sometimes True Do you have trouble paying for medicines?: Yes Do you have trouble getting transportation to medical appointments?: No Do you have trouble paying your heating and electricity bill?: Yes Do you have trouble taking care of your child, family member or friend?: I choose not to answer this question Do you have trouble with day-to-day activities such as bathing, preparing meals, shopping, managing finances, etc.?: Yes Are you currently unemployed and looking for a job?: No Are you interested in more education?: No Please select the resources that you would like help with: None Currently or been in a relationship where the following occur: No concerns reported THRIVE Score: 3 AUDIT C Alcohol Use Questionnaire (AUDIT-C) 1. How often do you have a drink containing alcohol?: Monthly or less 2. How many drinks containing alcohol do you have on a typical day when you are drinking?: 1 or 2 3. How often do you have six or more drinks on one occasion?: Never Total Score: 1 Score Reviewed/Action Taken: Yes DIZA-7 AMB Questionnaire DIAZ-7 Date DIAZ - 7 assessed: 04/18/25 Feeling nervous, anxious, or on edge: 1 = Several days Not being able to stop or control worryin = Several days Worrying too much about different things: 1 = Several days Trouble relaxin = Several days Being so restless that it is hard to sit still: 1 = Several days Becoming easily annoyed or irritable: 1 = Several days Feeling afraid as if something awful might happen: 1 = Several days Total DIAZ-7 score (0-4 normal; 5-9 mild; 10-14 moderate; 15-21 severe): 7 Source: Developed by Drs. Naresh Durant, Maki Rivera, Edwin Banegas and colleagues, with an educational bart from [employer]. DIAZ-7 Assessment Billing DIAZ-7 Assessment Tool: DIAZ-7 Assessment 15001 Review of Systems Const Denies chills, Denies fatigue, Denies fever(s) and Reports headache(s) (recurrent) Eyes Denies blurry vision and Reports photophobia (with his headaches) ENT Denies dysphagia, Denies dizziness, Denies otalgia, Reports headache(s) (recurrent), Reports neck pain (on and off), Denies odynophagia and Denies sore throat Card Denies chest pain, Denies irregular heart rhythm, Denies palpitations and Denies dyspnea Resp Denies chest congestion, Denies cough and Denies dyspnea GI Denies abdominal pain, Denies constipation, Denies dysphagia, Denies heartburn, Denies diarrhea, Reports nausea (occasionally, mostly when he has increased headaches), Denies odynophagia and Denies vomiting Denies difficulty urinating, Denies dysuria and Denies urinary frequency Musc Denies back pain, Denies arthralgias and Reports neck pain (on and off) Skin/Breast Denies rash Neuro Denies dizziness, Reports headache(s) (recurrent) and Reports paresthesias (on and off in both hands and feet) Endo Denies fatigue and Denies palpitations Physical exam (Primary Care) Vital Signs: Last Vital Signs Pulse 89 04/18/25 14:36 BP 126/80 04/18/25 14:36 Pulse Ox 97 04/18/25 14:36 Oxygen Delivery Method Room Air 04/18/25 14:36 BMI result Body Mass Index 37.3 Tobacco/Smoking Status: Tobacco use Status Tobacco use date assessed 04/18/25 04/18/25 14:38 Patient Tobacco Use Status Never used Tobacco 04/18/25 14:38 e-Cigarette/Vaping Use Never Used 04/18/25 14:38 PHQ-9: PHQ-9 Score PHQ-9: Total score 4 04/18/25 15:23 Depression Screening Interpretation: Positive Depression Screening Follow-up: Follow-up Visit Requested Thrive Assessment: Date of Thrive Assessment Date Thrive assessed 04/18/25 04/18/25 14:38 Currently or been in a relationship where the following occur: No concerns reported Const General: no acute distress and alert HENMT Ears: TM's normal bilaterally and EAC's normal Throat: Yes posterior oropharynx normal and Yes tonsils normal (no TP congestion) Eyes Direct Ophthalmoscopy: photophobia (with his headaches) Neck Neck: No lymphadenopathy Thyroid: Thyroid normal Resp Auscultation: clear to auscultation bilaterally, no rales and no wheezes Cardio Rate: regular rate Rhythm: regular rhythm Heart sounds: no murmurs GI Palpation (GI): Soft to palpation and nontender Auscultation: normal bowel sounds General: Yes no CVA tenderness Back/Spine/Pelvis Back: no CVA tenderness Cervical Spine: Cervical spine tenderness Thoracic/Lumbar Spine: lumbar spinal tenderness Skin Rashes: no rashes Extrem General: Yes no clubbing, cyanosis or edema Results Reviewed Results Reviewed: Laboratory Tests 01/05/25 01/05/25 15:04 15:07 WBC 7.7 Hgb 14.4 Hct 41.7 L Plt Count 270 Sodium 139 Potassium 3.7 Creatinine 1.16 Estimated GFR > 60 Random Glucose 103 Calcium 8.7 D Magnesium 2.1 AST 29 ALT 32 Cholesterol 168 Vitamin B12 479 25-OH Vitamin D Total 31.2 TSH 1.54 Ur Specific [place] 1.025 Urine Protein Negative Urine Glucose (UA) Negative Urine Blood Negative Urine Nitrite Negative Ur Leukocyte Esterase Negative Coding Level of Care Code Est Pt Level 4 (23373) Diagnoses Frequent headaches R51.9 Paresthesia R20.2 Hx of herpes encephalitis Z86.19 Osteoarthritis of right shoulder, unspecified osteoarthritis type M19.011 Osteoarthritis type: unspecified Obesity (BMI 30-39.9) E66.9 Additional Codes DIAZ-7 Assessment Billing - DIAZ-7 Assessment Tool: DIAZ-7 Assessment 04792 ([id number]) PHQ-9 - 23052 - PHQ-9 Billing: Yes ([id number]) Assessment & Plan Assessment & Plan (1) Frequent headaches: Code(s): R51.9 - Headache, unspecified Category: Medical Plan: His head CT done a few months ago came back normal Will start him on Topiramate at 50 mg Q HS for VALDOVINOS prophylaxis Continue Sumatriptan 50 mg PRN Will also refer him to neurology for further evaluation and management (2) Paresthesia: Code(s): R20.2 - Paresthesia of skin Category: Medical Plan: Involving both hands and feet bilaterally Results of his labs done back in December 2024 reviewed and discussed with patient - he is reassured that his labs have all come back normal (3) Hx of herpes encephalitis: Comment: occurred in 2021 Code(s): Z86.19 - Personal history of other infectious and parasitic diseases Category: Medical Plan: Occurred in 2021 Patient still has Valtrex Rx that he takes as needed for breakouts of his symptoms but states that he has not needed to take it in a while now (4) Osteoarthritis of right shoulder: Code(s): M19.011 - Primary osteoarthritis, right shoulder Category: Medical Qualifiers: Osteoarthritis type: unspecified Qualified Code(s): M19.011 - Primary osteoarthritis, right shoulder Plan: MRI of the shoulder done back in June 2023 that revealed (+) mild acromioclavicular osteoarthritis with marrow and capsular edema as well as a trace joint effusion - could represent osteoarthritis versus sequela of an overuse injury (early acromioclavicular osteolysis) Follow-up with orthopedics as scheduled (5) Obesity (BMI 30-39.9): Code(s): E66.9 - Obesity, unspecified Category: Medical Plan: Reinforced diet/exercise as tolerated/lose weight Plan Follow up in 6 months Orders: Referrals Neurology Referral R51.9 - Headache, unspecified Medications: New sumatriptan succinate take 1 tab at onset of headache; if no relief may repeat 1 tab after at least 2 hrs; max = 4 tabs/24 hr orally PRN; 30 tabs 1RF migraine headache topiramate 50 mg (2 x 25 mg) PO BEDTIME 60 tabs 3RF 30 days
--- OUTSIDE RECORDS SUMMARY | 2025-04-18 17:52 | XMS_ITS | Clinical Summary ---
Author Organization [facility] Address [address] [place] [id number] Care Team Providers Care Pipe Fitter Maintenance Name Role Phone Renae Davenport Primary Care Provider [phone] Allergies No known active allergies Medications No [...] 3-dose series) 12/25/2011 COVID-19 Vaccine ( - 2024-2 6 season) 2025 Influenza (#1) 2025 Zoster (Shingrix) (1 of [...] [employer] FEE FOR SERVICE PPO Care Teams Pipe Fitter Maintenance Relationship Specialty Start Date End Date Renae Davenport [address] [id number] PCP - General Family Medicine 02/16/13
--- OUTSIDE RECORDS SUMMARY | 2025-04-18 17:52 | XMS_ITS | Clinical Summary ---
Author Organization [facility] Address [address] [place] [address] Phone Care Team Providers Care Digital Operations Analyst Name Role Phone Renae Davenport MD Primary Care Provider Allergies No known active allergies Surgical History [...] of 3 - 19+ 3-dose series) 12/25/2011 HPV Vaccines (1 - 3-dose SCD M series) 12/25/2019 HIV Screening 04/21/2022 Hepatitis C Screening 04/21/2022 Social Influencers of Health Screening 04/21/2022 Depression Screening 05/19/2024 COVID-19 Vaccine (1 - 2024-2 6 season) 2025 Influenza Vaccine (#1) 2025 RSV Immunization Adult Patie nts (1 - 1-dose 75+ series) 12/25/2067 HIB Vaccines Aged Out No longer eligi [...] this topic Insurance [facility] [employer] [facility] Care Teams Digital Operations Analyst Relationship Specialty Start Date End Date Renae Davenport MD PCP - General 02/16/14
== END 2025-04-18 15:27 | disposition home or self-care (01) ==
LOC: HO.HMCH 14:34
PROVIDERS: PCP Internal Medicine; Visit Provider Internal Medicine
DX: R51.9 Headache, unspecified (principal); R20.2 Paresthesia of skin; E66.9 Obesity, unspecified; Z68.37 Body mass index [BMI] 37.0-37.9, adult; Z86.19 Personal history of other infectious and parasitic diseases; M19.011 Primary osteoarthritis, right shoulder

== ENCOUNTER → 2025-04-18 14:34 | Outpatient (BNVA) | payer OTHER, SELFPAY | PROVIDERS: PCP Internal Medicine; Visit Provider Internal Medicine | DX: R20.2 Paresthesia of skin (principal); R51.9 Headache, unspecified; M19.011 Primary osteoarthritis, right shoulder; E66.9 Obesity, unspecified; Z86.19 Personal history of other infectious and parasitic diseases; Z79.899 Other long term (current) drug therapy; Z68.37 Body mass index [BMI] 37.0-37.9, adult | CPT/HCPCS: 96127; 99212 ==